=== PATIENT | female | born 1965 ===

== ENCOUNTER 2020-08-21 20:08 | Outpatient (REF) | payer OTHER, SELFPAY ==
[2020-08-28 09:48] LABS: COVID-19 RT-PCR UVMMC Result Negative (Negative)
== END 2020-08-21 20:28 ==
LOC: NCHCN 20:08
PROVIDERS: Visit Provider Internal Medicine
DX: Z20.828 Contact with and (suspected) exposure to other viral communicable diseases (principal)
CPT/HCPCS: U0003